=== PATIENT | female | born 1930 | race Caucasian/White ===

== ENCOUNTER 2017-02-12 10:27 | Day surgery (SDC) | payer MEDICARE, OTHER ==
[~2017-02-12] VITALS: Ht 144.8 cm; Wt 71.3 kg
[~2017-02-12 10:27] MED LIST: ASPI81TA3 PO; ATOR20TA38 PO; CELE200C PO; CHOL20003 PO; DOCU50CA PO; GABA100C PO; HYD25 GTB; LOSA25TA5 PO; METF500T9 PO; METO-448 PO; OMEP20CA16 PO; TRAM50TA2 PO
[2017-02-12 11:59] VITALS: Ht 144.8 cm; Wt 71.3 kg
[2017-02-12] MEDS ORDERED: LIDOCAINE 2% (SDV) 5 ML INJ ONE (12:38)
[2017-02-12] MEDS ORDERED: PROPOFOL 20 ML ONE (12:38)
[2017-02-12] MEDS ORDERED: FENTAnyl 50 MCG/ML VIAL ONE (12:39)
[2017-02-12 12:55] VITALS: BP 183/74; PULSE 61; RESP 20
[2017-02-12 13:50] VITALS: BP 182/81; PULSE 60; RESP 19
--- NOTE | 2017-02-12 13:59 | GILP ---
DATE OF PROCEDURE: NAME OF PROCEDURES: Esophagogastroduodenoscopy and biopsy. SURGEON: Alma Mccauley MD PREOPERATIVE DIAGNOSIS: Abdominal pain. POSTOPERATIVE DIAGNOSES 1. Gastritis with erosions. 2. Gastric mucosal biopsies were taken for Helicobacter pylori test. INDICATION FOR THE PROCEDURE: Ms. Amber Schafer is an 86-year-old female patient who had upper abdominal pain, not responding to therapy. The patient was scheduled for endoscopic examinat ion for further evaluation. The procedure and possible complications were well explained to the patient, she understood and cons ented to the procedure. DESCRIPTION OF PROCEDURE: Under the influence of anesthesia, the gastroscope was carefully introduc ed into the esophagus and under direct vision, it was advanced to the stomach and through the pyloru s into the duodenal bulb and descending duodenum. FINDINGS: ESOPHAGUS: Mucosa was normal. STOMACH: The patient had gastritis with erosions. Gastric mucosal biopsies were taken for H. pylor i test. DUODENUM: Normal. The patient tolerated the procedure very well and there was no complication from the procedure. At the end of the procedure, she was awake with stable vital signs and she was discharged home to the [facility] of her family. IMPRESSION: 1. Gastritis with erosions. 2. Gastric mucosal biopsies were taken for Helicobacter pylori test. PLAN: 1. Continue omeprazole. 2. Add Zantac 300 mg p.o. at bedtime. 3. Await H. pylori test report. Dictated By: ALMA FAIR/OLU Conf#: [id number] DID#: [id number]
== END 2017-02-12 16:56 | disposition home or self-care (01) ==
LOC: GIL 10:27
PROVIDERS: ATTEND Internal Medicine Gastroenterology
DX: K29.60 Other gastritis without bleeding (principal); E11.9 Type 2 diabetes mellitus without complications; I10 Essential (primary) hypertension; E66.9 Obesity, unspecified; Z68.34 Body mass index [BMI] 34.0-34.9, adult
CPT/HCPCS: 43239; 82962; 87081; J3010